=== PATIENT | female | born 1990 | race Hispanic/Latino ===

== ENCOUNTER 2023-11-17 10:23 | Emergency (ER) | payer OTHER, SELFPAY ==
[2023-11-17 10:31] VITALS: BP 167/97
--- NOTE | 2023-11-17 11:17 | ED.GENMED ---
History of Present Illness
General
Chief Complaint: Back Pain
Time Seen by Provider: 11/17/23 10:58
Travel History
Have you had any contact with someone who has COVID-19?: No
Do you have any symptoms of coronavirus? Fever > 100 degrees, chills, cough, shortness of breath, sore throat, loss of taste or smell, muscle aches, or headache?: No
History of Present Illness
History of Present Illness:
33-year-old female presents to the emergency department for evaluation of bilateral low back pain radiating toward the anterior abdomen ongoing for the past week. She states she is passing small kidney stones and noticed, and hematuria today. Pain
worsened this morning prompting her to come to the ER. Denies any fevers or chills. Denies any nausea, vomiting, or diarrhea.
Past History
Past History
ED Past Medical History: Asthma, Hypothyroidism, Psychiatric and Other (Migraines, IBS)
ED Past Surgical History: Other
Social History
Tobacco: Non-smoker
Alcohol: Occasional
Drug: None
Personal: Single
Living: with family
Review of Systems
Review of Systems
Allergies reviewed?: Yes
All Other Systems: ROS reviewed and negative except as documented in HPI and ROS
Phy Exam
Physical Exam
Physical Exam:
GEN: Well appearing, NAD, WDWN
HEENT: Oral mucosa moist, no scleral icterus
Cardiac: Regular rate
Lung: No respiratory distress, no tachypnea
Abdomen: No CVA tenderness bilaterally. Anterior abdomen is diffusely tender to all 4 quadrants with no focality and no rigidity.
MSK: No gross deformity or injuries. Bilateral paraspinous muscle tenderness noted
Skin: Good color, no pallor or jaundice, no rashes
Neuro: AO x3, moves all extremities freely
Psych: Calm, cooperative
Course
Orders/Labs/Results
Orders:
Orders
11/17/23 11:16
CT Abd/pel Without Iv Or Oral Urgent
Comment:
Reason For Exam: bilateral flank pain, dysuria
Ketorolac [Toradol] 30 mg IM NOW STA
Test Result ONCE
11/17/23 13:08
HCG, Urine Qualitative Screen Urgent
Date Specimen was Collected: 11/17/23
Time Specimen was Collected: 13:07
Urinalysis Reflex To Culture Urgent
Date Specimen was Collected: 11/17/23
Time Specimen was Collected: 13:07
Urine Microscopic Reflex Cult Urgent
Abnormal Lab Results
11/17/23
13:08
Ur Occult Blood Reflex 3+ A
(Negative)
Urine RBC 7-10 A /HPF
(0-2)
Vital Signs
Initial and Last Documented VS:
Initial Vital Signs
Temp Pulse Resp BP Pulse Ox
98.1 F 72 16 167/97 95
11/17/23 10:31 11/17/23 10:31 11/17/23 10:31 11/17/23 10:31 11/17/23 10:31
Last Documented Vital Signs
Temp Pulse Resp BP Pulse Ox
98.1 F 54 18 124/74 97
11/17/23 10:31 11/17/23 12:30 11/17/23 12:30 11/17/23 12:00 11/17/23 12:30
MDM/Problems Addressed
MDM/Problems Addressed:
She does have small known hematuria which may reflect recently passed stone but no evidence for active ureterolithiasis on CT scan. No evidence for UTI. Discussed supportive care
*Critical Care Note
Total Time (30-74mins, 75-104mins- exclusive of procedures): Not Applicable
ED Attending Note
-
Portions of this chart may have been created with voice recognition software.� Occasional wrong word or��sound alike� substitutions may have occurred due to the inherent limitations of voice recognition software.
Discharge Plan
Departure
Patient Disposition: Home (Routine Discharge)
Date of Disposition: 11/17/23
Time of Disposition: 14:37
Patient with high blood pressure during this ER visit?: No
Discharge Problem:
Generalized abdominal pain
Instructions: Abdominal Pain, Adult ED
Prescriptions:
New
methocarbamol 750 mg tablet
750 mg PO Q8H Qty: 10 0RF
Referrals:
Viktor Rob DO [Family Provider] -
Stand Alone Forms: Return to Work
Interventions
Interventions:
*Risk Screen - Suicide Last Done: 11/17/23 11:20
*General Assessment Last Done: 11/17/23 11:21
*Neglect/Abuse Screening Last Done: 11/17/23 11:20
ED- Fall Risk Assessment Last Done: 11/17/23 11:20
*ED COVID-19 Vaccine History Last Done: 11/17/23 10:35
ED-Musculoskeletal Assessment Last Done: 11/17/23 11:23
[2023-11-17 11:19] VITALS: BMI 39.3
[2023-11-17 11:26] VITALS: BP 134/78
[2023-11-17] MEDS: TORADOL 30 MG IM (11:28)
[2023-11-17 12:00] VITALS: BP 124/74
[2023-11-17 13:38] LABS: HCG, Urine Qualitative Screen Negative; Urine Albumin Negative (Neg - Trace); Urine Bilirubin Negative (Negative); Urine Character Clear (Clear); Urine Color Yellow; Urine Glucose Negative (Negative); Urine Ketone Negative (Negative); Urine Leukocyte Negative (Negative); Urine Nitrite Negative (Negative); Urine Occult Blood 3+ (Negative); Urine Urobilinogen Negative (Neg - 1+)
[2023-11-17 14:00] LABS: Urine Squamous Cell 16-20 /LPF (Few)
[2023-11-17 14:01] LABS: Urine Calcium Oxalate Crystals Seen
[2023-11-17 14:53] VITALS: BP 125/77
== END 2023-11-17 14:54 | disposition home or self-care (01) ==
LOC: EMR 10:23
PROVIDERS: Physician Assistant; EMERGENCY PHYSICIAN Emergency Medicine; FAMILY PHYSICIAN Family Medicine Sports Medicine
DX: R10.84 Generalized abdominal pain (principal); M54.50 Low back pain, unspecified; J45.909 Unspecified asthma, uncomplicated; E03.9 Hypothyroidism, unspecified; K58.9 Irritable bowel syndrome, unspecified
CPT/HCPCS: 99284; 74176; 81003; 81015; 81025